=== PATIENT | female | born 1955 | race Caucasian/White ===

== ENCOUNTER → 2016-12-01 | Outpatient (CLI) | payer BC ==
--- NOTE | 2016-12-01 11:47 | DIAGNOSTIC IMAGING REPORT ---
CT OF THE CHEST WITHOUT IV CONTRAST CLINICAL HISTORY: Follow-up pulmonary nodules. COMPARISON STUDY: Chest CT October 13, 2015 and March 06, 2016. CT DOSE: 266.33 mGycm TECHNIQUE: Axial images of the chest were obtained without IV contrast. Images were reviewed in the axial, sagittal, and coronal planes. IV contrast was not administered for this examination. FINDINGS: Several mildly enlarged mediastinal lymph nodes are stable since initial chest CT October 13, 2015. Several these nodes are partially calcified. An index aorticopulmonary window lymph node measures 1.1 cm in short axis diameter. The size of the heart is normal and there is no pericardial effusion. There is no axillary lymphadenopathy. Bony thorax is unremarkable. There are several calcified granulomas within the lungs. Numerous noncalcified nodules are unchanged since CT of October 13, 2015 and include a 6 mm left upper lobe nodule shown on image 86 of 286, a 6 mm left lower lobe nodule shown image 105, an 8 mm left lower lobe nodule shown image 224 and a 7 mm right upper lobe nodule shown on image 92. No new nodules are present. The upper abdomen is unremarkable. IMPRESSION: 1. No change in multiple noncalcified pulmonary nodules since CT of October 13, 2015. Several of these may reflect intrapulmonary lymph nodes. These nodules are likely benign but a follow-up chest CT in 6 months to ensure stability is recommended. 2. No change in several mildly enlarged, partially calcified thoracic lymph nodes which suggest a prior granulomatous process. Electronically signed by: Arron Blankenship M.D. 12/01/2016 11:45 AM Dictated Date/Time: 12/01/2016 11:14 AM
== END | disposition home or self-care (01) ==
LOC: C.CTS 10:36
PROVIDERS: ATTEND Internal Medicine Pulmonary Disease
DX: R91.1 Solitary pulmonary nodule (principal)

== ENCOUNTER → 2017-09-24 | Outpatient (CLI) | payer BC ==
--- NOTE | 2017-09-24 11:18 | DIAGNOSTIC IMAGING REPORT ---
(CHEST) THORAX WITHOUT CT DOSE: 207.23 mGycm HISTORY: PULMONARY NODULE TECHNIQUE: Multiaxial CT images of the chest were performed without contrast. A dose lowering technique was utilized adhering to the principles of ALARA. COMPARISON: Chest CTs dating back to 10/13/2015. FINDINGS: No significant change in the scattered calcified and noncalcified subcentimeter nodular densities seen within the lungs. Some of these are located adjacent to the bronchovascular bundle and favor intrapulmonary lymph nodes. No new pulmonary nodules identified. These nodules demonstrate near 2 year stability. The central airways are patent. No pleural effusions. No pneumothorax. No suspicious lytic or blastic osseous lesions. A partially calcified mediastinal lymph nodes remain stable. The heart is normal in size. Minimal pericardial fluid, unchanged. Limited views of the liver and spleen are unremarkable. Normal adrenal glands. IMPRESSION: No change in the multiple calcified and noncalcified subcentimeter pulmonary nodules compared to the studies dating back to October 23, 2015. Therefore, these demonstrate near 2 year stability and are likely benign. Electronically signed by: Dewayne Lozada M.D. 09/24/2017 11:17 AM Dictated Date/Time: 09/24/2017 11:11 AM
== END | disposition home or self-care (01) ==
LOC: C.CTS 10:45
PROVIDERS: ATTEND Internal Medicine Pulmonary Disease
DX: R91.1 Solitary pulmonary nodule (principal)

== ENCOUNTER → 2018-05-29 | Outpatient (CLI) | payer BC ==
[2018-05-29 13:50] LABS: HEMATOCRIT 43.2 % (37-47); HEMOGLOBIN 14.3 g/dL (12.0-16.0); MEAN CELL VOLUME 94.9 fL (80-100); MEAN CORPUSCULAR HEMOGLOBIN 31.4 pg (25-34); MEAN CORPUSCULAR HGB CONC 33.1 g/dl (32-36); MEAN PLATELET VOLUME 10.5 fL (7.4-10.4); PLATELET COUNT 284 K/uL (130-400); RED CELL DISTRIBUTION WIDTH CV 12.7 % (11.5-14.5); RED CELL DISTRIBUTION WIDTH SD 44.4 fL (36.4-46.3); WHITE BLOOD COUNT 5.01 K/uL (4.8-10.8)
[2018-05-29 14:22] LABS: BLOOD UREA NITROGEN 15 mg/dl (7-18); CALCIUM 8.7 mg/dl (8.5-10.1); CARBON DIOXIDE 28 mmol/L (21-32); CHOLESTEROL 310 mg/dl (0-200); CREATININE 0.83 mg/dl (0.60-1.20); GLUCOSE 90 mg/dl (70-99); LDL CHOLESTEROL CALCULATED 206 mg/dl; POTASSIUM 4.2 mmol/L (3.5-5.1); SODIUM 139 mmol/L (136-145)
== END | disposition home or self-care (01) ==
LOC: C.LABPBG 08:12
PROVIDERS: ATTEND Family Medicine
DX: Z00.00 Encounter for general adult medical examination without abnormal findings (principal); E78.5 Hyperlipidemia, unspecified